=== PATIENT | male | born 1935 | race Hispanic/Latino ===

== ENCOUNTER → 2021-06-21 | Emergency (ER) | payer MEDICARE ==
[~2021-06-21] VITALS: Ht 177.8 cm; Wt 81.6 kg
[~2021-06-21] MED LIST: FINASTERIDE5 MG PO; FLOMAX0.4 MG PO; METOPROLOL SUCC25 MG PO; NOREPINEPHRINE 8 MG/D5W 250 ML 250 ML ONE; RENVELA800 MG PO
== END | disposition home or self-care (01) ==
LOC: ER 15:45
DX: L03.032 Cellulitis of left toe (principal); I12.0 Hypertensive chronic kidney disease with stage 5 chronic kidney disease or end stage renal disease; E11.22 Type 2 diabetes mellitus with diabetic chronic kidney disease; N18.6 End stage renal disease; Z99.2 Dependence on renal dialysis
CPT/HCPCS: 99283